=== PATIENT | female | born 1985 | race Caucasian/White ===

== ENCOUNTER 2016-11-19 19:23 | Emergency (ER) | payer OTHER ==
[~2016-11-19] VITALS: Wt 90.8 kg
[~2016-11-19 19:23] MED LIST: ALPR0.5T6 PO; CIPR500T4 PO; HYDR-3498 PO; IBUP-1542 PO; LORA-441 PO; METF500T4 PO; PHEN-538 PO
[2016-11-19 20:14] LABS: URINE BLOOD (Dip) POC Negative (NEGATIVE)
[2016-11-19] MEDS ORDERED: CIPR500T4 PO (20:27)
--- NOTE | 2016-11-19 21:18 | ERD ---
DATE OF SERVICE: HISTORY OF PRESENT ILLNESS: The patient is a 31-year-old female coming in complaining of dysuria fo r 1 day. She has had no nausea or vomiting. She has generalized pelvic pain. She has had some mil d itching within the vaginal region. No history of STDs. No new sexual partners. No vaginal disch arge. She has no dysuria, no fevers, no back pain. MEDICAL HISTORY: Diabetes, insulin, non-insulin dependent. ALLERGIES TO MEDICATIONS: Denies. HISTORY: Denies. SOCIAL HISTORY: Denies. REVIEW OF SYSTEMS: A 12-point review of systems was done. Refer to HPI for positives, all other sy stems negative. PHYSICAL EXAMINATION VITAL SIGNS: Temperature is 98.6, pulse is 94, blood pressure is 138/81, respiratory rate 20, O2 sa turation 100% on room air. Pain intensity is 6/10. GENERAL: The patient is well-appearing, well-nourished, no acute distress. HEART: Regular rate and rhythm. No murmurs, clicks, rubs or gallops. No S3 or S4. CHEST: Clear to auscultation bilaterally. There are no rales, wheezes or rhonchi. ABDOMEN: Soft, nontender and nondistended. Good bowel sounds. No rebound or guarding. No gross melecio tonitis. No gross organomegaly or masses. No Ballard sign or McBurney point tenderness. GENITOURINARY: There is no cottage cheese discharge noted within the vaginal vault, no abnormal dis charge. No CMT tenderness. No adnexal masses or tenderness throughout exam. EMERGENCY ROOM COURSE: The patient had a urine dip checked in the ER. Patient's urine showed 1+ le ukocytes with negative nitrites, negative blood, negative ketones, negative glucose, negative protei n. DIAGNOSIS: Urinary tract infection. MEDICAL DECISION MAKING: I have low suspicion for pyelonephritis. Patient does not have CVA tender ness. Low suspicion for pelvic emergency. The patient's exam is nonconcerning. I have low suspici on for fungal infection or STDs. The patient's urine was sent out for gonorrhea and chlamydia testi ng. DISCHARGE: The patient is discharged stable. Patient was given a prescription for Cipro and told t o follow up with primary care within 1 to 2 days for reevaluation. Patient was told if symptoms pro rayshawn or worsen to return to the ER. All other questions answered at time of discharge. Discharge summary given at the time of departure. Patient understood and complied with plan. Dictated By: JAZMINE BENNETT for JAN LUGO/SHYLA Conf#: [id number] DID#: [id number]
== END 2016-11-19 20:33 | disposition home or self-care (01) ==
LOC: FTE 19:23
DX: N39.0 Urinary tract infection, site not specified (principal); R10.2 Pelvic and perineal pain; E11.9 Type 2 diabetes mellitus without complications; Z79.4 Long term (current) use of insulin
CPT/HCPCS: 81003; 87591; Z7502; 99284

== ENCOUNTER 2016-11-30 10:15 | Emergency (ER) | payer OTHER ==
[~2016-11-30] VITALS: Ht 162.6 cm; Wt 90.6 kg
[2016-11-30 10:19] VITALS: Ht 162.6 cm; Wt 90.6 kg
[2016-11-30 11:47] LABS: URINE BLOOD (Dip) POC 1+ (NEGATIVE)
--- NOTE | 2016-11-30 12:25 | RADRPT ---
PROCEDURE: CT Abdomen and Pelvis without contrast CLINICAL INDICATION: Flank pain TECHNIQUE: Transaxial images were obtained through the abdomen and pelvis on a multi-slice scanner without the intravenous contrast administration. No oral contrast had previously been given. Sagit stas and coronal re-formations were subsequently reconstructed. One or more of the following dose reduction techniques were used: - Automated exposure control. - Adjustment of the mA and/or kV according to patient size. - Use of iterative reconstruction technique. Radiation dose: CTDIvol = 16.85 mGy; DLP = 1077.82 mGy-cm. COMPARISON: 03/01/2016 FINDINGS: Lung bases: The visualized lung bases appear unremarkable. Liver: The liver is mildly enlarged with no focal lesion evident. Gallbladder: The wall is not thickened. No radiopaque stones are identified. Bile ducts: The intra and extrahepatic bile ducts are normal in caliber. Pancreas: Appears normal with no mass or inflammation evident. Spleen: Normal in size with no focal lesion. Adrenals: Normal with no mass identified. Kidneys, ureters and bladder: The kidneys are normal in size and there is no mass, pathological calc ification, or hydronephrosis evident. There is no perinephric stranding. The ureters are normal in c aliber and no ureteroliths are identified. The bladder appears unremarkable. Reproductive organs: An IUD is seen within the uterus. No adnexal mass is identified. Stomach and bowel: The bowel appears unremarkable with no evidence of bowel obstruction or inflammat ion. The stomach appears unremarkable. Appendix: A normal vermiform appendix is again evident. Peritoneum: No free intraperitoneal fluid or air is identified. There is a small fat containing umbi lical hernia. Aorta: Normal in caliber with no aneurysmal dilatation. IVC: Unremarkable. Lymph nodes: No pathologically enlarged nodes are identified. Osseous structures: The osseous elements appear intact. IMPRESSION: 1. There is again no evidence of urinary outflow obstruction or ureterolithiasis. The bladder agai n appears normal. 2. No evidence of bowel obstruction or inflammation with a normal-appearing vermiform appendix. 3. Mild persistent hepatomegaly with no focal lesion. 4. An IUD is again seen within the uterus. 5. Small fat containing umbilical hernia again noted. Cynthia Vasquez Physician Date Time Electronically viewed and signed by Cynthia Vasquez Physician on 11/30/2016 12:24 RH/
[2016-11-30] MEDS ORDERED: CEFTRIAXONE 1 GM INJ IM ONE (12:30)
[2016-11-30] MEDS ORDERED: BACTDS PO (12:55)
[2016-11-30] MEDS ORDERED: IBUP800T25 PO (12:55)
[2016-11-30] MEDS ORDERED: TRAM50TA2 PO (12:55)
--- NOTE | 2016-11-30 12:57 | ERD ---
ER Documentation Chief Complaint Date/Time DATE: 11/30/16 TIME: 12:55 Chief Complaint left flank pain for 5 days. no n/v. mild dysuria noted. no hematuria HPI This 31-year-old female complains of left lower back or flank pain for last 5 days. She was diagnosed with UTI by her primary doctor and was taking Cipro but she complains of persistent flank pain. She is some mild dysuria. She denies fevers, vomiting. ROS All systems reviewed and are negative except as per history of present illness. Medications Home Meds Active Scripts Tramadol HCl (Tramadol HCl) 50 Mg Tablet, 50 MG PO Q4 Y for PAIN, #15 TAB Prov:GUI JULIO MD 11/30/16 Ibuprofen* (Motrin*) 800 Mg Tab, 800 MG PO Q6, #20 TAB Prov:GUI JULIO MD 11/30/16 Sulfamethoxazole-Trimethoprim* (Bactrim* DS) 800-160 Mg Tab, 1 TAB PO BID for 10 Days, TAB Prov:GUI JULIO MD 11/30/16 Ciprofloxacin Hcl* (Ciprofloxacin Hcl*) 500 Mg Tablet, 500 MG PO BID for 7 Days , TAB Prov:GABE CRUZ PA-C 11/19/16 Hydrocodone Bit-Acetaminophen* ([place]*) 5-325 Mg Tab, 1 TAB PO Q6 Y for PAIN, # 10 TAB Prov:LUÍS PINA NP 03/01/16 Phenazopyridine Hcl* (Pyridium*) 200 Mg Tab, 200 MG PO TID Y for URINARY PAIN, # 6 TAB Prov:LUÍS PINA NP 03/01/16 Ciprofloxacin Hcl* (Ciprofloxacin Hcl*) 500 Mg Tablet, 500 MG PO BID for 10 Days , TAB Prov:LUÍS PINA NP 03/01/16 Ibuprofen* (Motrin*) 600 Mg Tab, 600 MG PO Q6, #30 TAB Prov:DAHIANA DRUMMOND 10/22/15 Lorazepam* (Ativan*) 0.5 Mg Tablet, 0.5 MG PO Q8, #10 TAB Prov:DAHIANA DRUMMOND 10/22/15 Reported Medications Alprazolam* (Alprazolam*) 0.5 Mg Tablet, 0.5 MG PO DAILY Y for ANXIETY, TAB 09/17/14 Metformin* (Glucophage*) 500 Mg Tab, 500 MG PO CHECK SUGAR DAILY for CHECK SUGAR TAKE IF NEEDED, TAB 08/10/14 Allergies Allergies: Coded Allergies: No Known Allergy (Unverified , 03/01/16) PMhx/Soc History of Surgery: No Anesthesia Reaction: No Hx Neurological Disorder: No Hx Respiratory Disorders: No Hx Cardiac Disorders: No Hx Psychiatric Problems: No Hx Miscellaneous Medical Probl: Yes (DM) Hx Alcohol Use: No Hx Substance Use: No Hx Tobacco Use: No Physical Exam Vitals Vital Signs Date Time Temp Pulse Resp B/P Pulse Ox O2 Delivery O2 Flow Rate FiO2 11/30/16 10:19 98.2 69 20 145/75 99 Physical Exam Const: [] Alert, [id number]. Morbidly obese. Head: Atraumatic Eyes: Normal Conjunctiva ENT: Normal External Ears, Nose and Mouth. Neck: Full range of motion..~ No meningismus. Resp: Clear to auscultation bilaterally Cardio: Regular rate and rhythm, no murmurs Abd: Soft, non tender, non distended. Normal bowel sounds Skin: No petechiae or rashes Back: No midline mild left flank tenderness and left lower back tenderness. No midline tenderness or deformities. Ext: No cyanosis, or edema Neur: Awake and alert Psych: Normal Mood and Affect Results 24 hrs Laboratory Tests Test 11/30/16 11:50 Bedside Urine Blood 1+ Bedside Urine Glucose (UA) Negative Bedside Urine Ketones (LAB) Negative Bedside Urine Leukocyte Esterase (L 2+ Bedside Urine Nitrite (LAB) Negative Bedside Urine Protein (LAB) Negative Bedside Urine pH (LAB) 6.0 Current Medications Medications (Trade) Dose Ordered Sig/Mick Route PRN Reason Start Time Stop Time Status Last Admin Dose Admin Ceftriaxone Sodium (Rocephin) 1 gm ONCE ONCE IM 11/30/16 12:30 11/30/16 12:31 DC Procedures/MDM Urine shows 1+ leukocytes and hemoglobin and was sent for culture. HCG is negative. Given previous treatment and uncertain cause of flank and CT abdomen pelvis was obtained shows no evidence of pyelonephritis, and is read as having no acute findings according to the radiologist. Given the signs of UTI and flank pain of uncertain etiology Rocephin was given 1 g IM. Patient presents with signs of cystitis and low back pain or flank pain of uncertain etiology. She has no fever vomiting suggestive of pyelonephritis currently but will be treated with Bactrim, ibuprofen and tramadol. Her back pain may be muscular skeletal. She should return for fevers, vomiting, new or worsening symptoms otherwise to include fluids, and follow-up with primary care doctor this week. The patient was stable with no new complaints during the ER course. Clinically, there is no current evidence to suggest meningitis, sepsis, acute abdomen, pneumonia, acute coronary syndrome, pulmonary embolism, or any other emergent condition appearing to require further evaluation or hospitalization. The patient should certainly return for any new or worsening symptoms per the aftercare instructions. They should otherwise follow-up with her primary care doctor for reevaluation this week. Patient signs or symptoms not consistent with PID, tubo-ovarian abscess, additional causes of flank pain or dysuria, but should return to follow-up with primary care doctor as directed. Departure Diagnosis: Primary Impression: UTI (urinary tract infection) Urinary tract infection type: acute cystitis Hematuria presence: without hematuria Qualified Code: N30.00 - Acute cystitis without hematuria Additional Impression: Flank pain Condition: Stable Patient Instructions: Understanding Urinary Tract Infections (UTIs), Flank Pain , Uncertain Cause Additional Instructions: HAY INFECCION EN ORINA, RUSS CT NORMAL. POSIBLEMENTE MUSCULOS . Cheque otro vez con cox doctor primario en el proximo toussaint or regresa para mas o nueva simptomas- JAYSON SANDOVAL. GUI JULIO MD Nov 30, 2016 12:57
== END 2016-11-30 13:32 | disposition home or self-care (01) ==
LOC: FTE 10:15
DX: N30.00 Acute cystitis without hematuria (principal); E11.9 Type 2 diabetes mellitus without complications; Z79.84 Long term (current) use of oral hypoglycemic drugs
CPT/HCPCS: 74176; 81003; 87086; 96372; J0696; Z7502

== ENCOUNTER 2016-12-07 21:49 | Emergency (ER) | payer OTHER ==
[~2016-12-07] VITALS: Ht 154.9 cm; Wt 91.5 kg
[~2016-12-07 21:49] MED LIST changes: +BACTDS PO; +IBUP800T25 PO; +TRAM50TA2 PO
[2016-12-07 22:01] VITALS: Ht 154.9 cm; Wt 91.5 kg
[2016-12-07 23:18] LABS: URINE BLOOD (Dip) POC Trace-lysed (NEGATIVE)
[2016-12-08] MEDS ORDERED: CIPR500T4 PO (00:19)
[2016-12-08] MEDS ORDERED: PHEN-537 PO (00:19)
[2016-12-08] MEDS ORDERED: CEPH-443 PO (00:23)
--- NOTE | 2016-12-08 00:43 | ERD ---
ER Documentation Chief Complaint Date/Time DATE: 12/08/16 TIME: 00:40 Chief Complaint Pain on urination HPI Patient is a 31-year-old female who presents to the ED with dysuria, urgency and back pain on and off for 1 week. She states that she took Bactrim and is currently on Bactrim but still states that she has dysuria. Denies fever or chills. Denies abdominal pain, nausea, vomiting or diarrhea. Denies constipation. Denies chest pain, cough, shortness of breath or difficulty breathing. Denies headache, dizziness, neck pain or stiffness. Denies leg pain or swelling. No other complaints. ROS All systems reviewed and are negative except as per history of present illness. Medications Home Meds Active Scripts Cephalexin* (Keflex*) 500 Mg Capsule, 500 MG PO QID for 5 Days, CAP Prov:SARAVANAN ONEIL PA-C 12/08/16 Phenazopyridine Hcl* (Pyridium*) 100 Mg Tab, 100 MG PO TID Y for URINARY PAIN, # 15 TAB Prov:SARAVANAN ONEIL PA-C 12/08/16 Tramadol HCl (Tramadol HCl) 50 Mg Tablet, 50 MG PO Q4 Y for PAIN, #15 TAB Prov:GUI JULIO MD 11/30/16 Ibuprofen* (Motrin*) 800 Mg Tab, 800 MG PO Q6, #20 TAB Prov:GUI JULIO MD 11/30/16 Sulfamethoxazole-Trimethoprim* (Bactrim* DS) 800-160 Mg Tab, 1 TAB PO BID for 10 Days, TAB Prov:GUI JULIO MD 11/30/16 Ciprofloxacin Hcl* (Ciprofloxacin Hcl*) 500 Mg Tablet, 500 MG PO BID for 7 Days , TAB Prov:GABE CRUZ PA-C 11/19/16 Hydrocodone Bit-Acetaminophen* ([place]*) 5-325 Mg Tab, 1 TAB PO Q6 Y for PAIN, # 10 TAB Prov:LUÍS PINA NP 03/01/16 Phenazopyridine Hcl* (Pyridium*) 200 Mg Tab, 200 MG PO TID Y for URINARY PAIN, # 6 TAB Prov:LUÍS PINA NP 03/01/16 Ciprofloxacin Hcl* (Ciprofloxacin Hcl*) 500 Mg Tablet, 500 MG PO BID for 10 Days , TAB Prov:LUÍS PINA TERRESTRIAL ECOLOGIST 03/01/16 Ibuprofen* (Motrin*) 600 Mg Tab, 600 MG PO Q6, #30 TAB Prov:DAHIANA DRUMMOND C 10/22/15 Lorazepam* (Ativan*) 0.5 Mg Tablet, 0.5 MG PO Q8, #10 TAB Prov:DAHIANA DRUMMOND C 10/22/15 Reported Medications Alprazolam* (Alprazolam*) 0.5 Mg Tablet, 0.5 MG PO DAILY Y for ANXIETY, TAB 09/17/14 Metformin* (Glucophage*) 500 Mg Tab, 500 MG PO CHECK SUGAR DAILY for CHECK SUGAR TAKE IF NEEDED, TAB 08/10/14 Allergies Allergies: Coded Allergies: No Known Allergy (Unverified , 03/01/16) PMhx/Soc Medical and Surgical Hx: pt denies Surgical Hx History of Surgery: No Anesthesia Reaction: No Hx Neurological Disorder: No Hx Respiratory Disorders: No Hx Cardiac Disorders: No Hx Psychiatric Problems: No Hx Miscellaneous Medical Probl: Yes (DM) Hx Alcohol Use: No Hx Substance Use: No Hx Tobacco Use: No Smoking Status: Never smoker FmHx Family History: No coronary disease, No diabetes, No other Physical Exam Vitals Vital Signs Date Time Temp Pulse Resp B/P Pulse Ox O2 Delivery O2 Flow Rate FiO2 12/07/16 22:01 97.5 95 18 140/79 98 Physical Exam GENERAL: Well-developed, well-nourished female. Appears in no acute distress. LUNG: Clear to auscultation bilaterally. No rhonchi, wheezing, rales or coarse breath sounds. HEART: Regular rate and rhythm. No murmurs, rubs or gallops. ABDOMEN: No scars, ecchymosis or rashes noted. Soft, nontender, and nondistended. Positive bowel sounds in all four quadrants. No rebound tenderness , no guarding. (-) McBurneys point tenderness. No CVA tenderness. BACK: No midline tenderness. SKIN: Normal color. Warm and dry. No rashes or lesions. Capillary refill < 2 seconds Results 24 hrs Laboratory Tests Test 12/07/16 23:21 Bedside Urine Blood Trace-lysed Bedside Urine Glucose (UA) 0.50% Bedside Urine Ketones (LAB) Negative Bedside Urine Leukocyte Esterase (L Negative Bedside Urine Nitrite (LAB) Negative Bedside Urine Protein (LAB) Negative Bedside Urine pH (LAB) 6.5 Procedures/MDM ER COURSE: I kept the patient and/or family informed of laboratory and diagnostic imaging results throughout the emergency room course. MEDICAL DECISION MAKING: This is a 31-year-old female who presents with dysuria 1 week. Vital signs were reviewed. Patient is afebrile. Patient is not hypoxic. Patient is not toxic or ill-appearing. Her urine was negative for nitrates, leukocytes or hematochezia. was negative. Culture from last week showed gram- positive. I will be switching her antibiotics to Keflex and giving her Pyridium. Urine was also sent for culture low suspicion for ovarian torsion, PID, tuboovarian abscess, ectopic , bowel obstruction, pyelonephritis, UTI, appendicitis, cervicitis, septic , molar , HELLP syndrome , preeclampsia, eclampsia, placenta previa, placenta abruptia. Low suspicion for nephrolithiasis, obstructive stone, septic stone. DISCHARGE: At this time, patient is stable for discharge and outpatient management with no new complaints during the ER course. Patient was sent home with Keflex and Pyridium. Patient will be discharged home with instructions to recheck for new or worsening symptoms such as fever, nausea, weakness, LOC and to follow up with primary care in the next 1-2 days. Patient was advised to return to the ER for any new or worsening symptoms. Plan was discussed and patient and/or family understands and agrees. Home instructions were given. Departure Diagnosis: Primary Impression: Dysuria Condition: Stable Patient Instructions: Dysuria Additional Instructions: Call your primary care doctor TOMORROW for an appointment during the next 1-2 days.See the doctor sooner or return here if your condition worsens before your appointment time. SARAVANAN ONEIL PA-C Dec 08, 2016 00:42
== END 2016-12-08 00:46 | disposition home or self-care (01) ==
LOC: FTE 21:49
DX: R30.0 Dysuria (principal); E11.9 Type 2 diabetes mellitus without complications; Z79.84 Long term (current) use of oral hypoglycemic drugs
CPT/HCPCS: 81003; Z7502; 99283

== ENCOUNTER 2017-04-29 12:01 | Emergency (ER) | payer OTHER ==
[~2017-04-29] VITALS: Wt 81.0 kg
[~2017-04-29 12:01] MED LIST changes: +CEPH-443 PO; +PHEN-537 PO
--- NOTE | 2017-04-29 13:42 | RADRPT ---
PROCEDURE: XR Left Ankle. CLINICAL INDICATION: Left ankle pain. Postop. TECHNIQUE: 3 views. Frontal, lateral, and oblique. COMPARISON: None. FINDINGS: There is a lateral plate and multiple screws transfixing the comminuted fracture of the distal shaft of the fibula. There is also an interosseous fixation device. Alignment is satisfactory. The soft tissues are normal. Articular surfaces are intact. There is a plantar calcaneal spur. There is no lytic or blastic lesion. IMPRESSION: 1. Satisfactory postoperative appearance of the left ankle. RPTAT: QQ .John Little MD, Date Time Electronically viewed and signed by .John Little MD, on 04/29/2017 13:42 .R/
[2017-04-29 14:01] LABS: URINE BLOOD (Dip) POC Trace-intact (NEGATIVE)
[2017-04-29] MEDS ORDERED: IBUP-1542 PO (14:09)
[2017-04-29] MEDS ORDERED: NITR-58 PO (14:11)
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
[2017-04-30 16:09] LABS: URINE BLOOD (Dip) POC Trace-intact (NEGATIVE)
== END 2017-04-29 14:20 | disposition home or self-care (01) ==
LOC: FTE 12:01
DX: N39.0 Urinary tract infection, site not specified (principal); Z79.84 Long term (current) use of oral hypoglycemic drugs
CPT/HCPCS: 73610; 81003; Z7502

== ENCOUNTER 2019-01-15 03:53 | Emergency (ER) | payer OTHER ==
[~2019-01-15] VITALS: Ht 162.6 cm; Wt 94.3 kg
[~2019-01-15 03:53] MED LIST changes: -IBUP800T25 PO; +IBUP800T48 PO; +METF-849 PO; -METF500T4 PO; +NITR-58 PO
[2019-01-15 04:00] VITALS: BP 148/85; PULSE 86; RESP 17; Ht 162.6 cm; Wt 94.3 kg
[2019-01-15] MEDS ORDERED: ACETAMINOPHEN 325 MG TAB PO STA (05:08)
--- NOTE | 2019-01-15 05:46 | ERD ---
ER Documentation Chief Complaint Chief Complaint VAGINAL BLEEDING X14 DAYS, 8 WEEKS , FLANK PAIN HPI 33-year-old female presents with complaint of vaginal bleeding and bilateral flank pain for the past 14 days. States that she has not been going through any pads but she does see some spotting on toilet paper. Not taking any treatments. Denies lower right quadrant tenderness. She is ambulatory. In addition she states there is been some vomiting. States that she vomited 2 times today. Denies dysuria hematuria, fevers, nausea, chills. ROS All systems reviewed and are negative except as per history of present illness. Medications Home Meds Active Scripts Cephalexin* (Keflex*) 500 Mg Capsule, 500 MG PO QID for 7 Days, CAP Prov:GABE CRUZ PA-C 01/15/19 Acetaminophen* (Tylophen*) 500 Mg Capsule, 2 CAP PO Q8H PRN for PAIN AND OR ELEVATED TEMP, #20 CAP Prov:CARLY BARAJAS 01/15/19 Nitrofurantoin Monohyd Macrocr* (Macrobid*) 100 Mg Capsr, 100 MG PO BID for 5 Days, CAP Prov:DONALD LOJA PA-C 04/29/17 Ibuprofen* (Motrin*) 600 Mg Tab, 600 MG PO Q6H PRN for PAIN AND OR ELEVATED TEMP, #30 TAB Prov:DONALD LOJA PA-C 04/29/17 Cephalexin* (Keflex*) 500 Mg Capsule, 500 MG PO QID for 5 Days, CAP Prov:SARAVANAN ONEIL PA-C 12/08/16 Phenazopyridine Hcl* (Pyridium*) 100 Mg Tab, 100 MG PO TID PRN for URINARY PAIN, #15 TAB Prov:SARAVANAN ONEIL PA-C 12/08/16 Tramadol HCl (Tramadol HCl) 50 Mg Tablet, 50 MG PO Q4 PRN for PAIN, #15 TAB Prov:GUI JULIO MD 11/30/16 Ibuprofen* (Motrin*) 800 Mg Tab, 800 MG PO Q6, #20 TAB Prov:GUI JULIO MD 11/30/16 Sulfamethoxazole-Trimethoprim* (Bactrim* DS) 800-160 Mg Tab, 1 TAB PO BID for 10 Days, TAB Prov:GUI JULIO MD 11/30/16 Ciprofloxacin Hcl* (Ciprofloxacin Hcl*) 500 Mg Tablet, 500 MG PO BID for 7 Days, TAB Prov:GABE CRUZ PA-C 11/19/16 Hydrocodone Bit-Acetaminophen* ([place]*) 5-325 Mg Tab, 1 TAB PO Q6 PRN for PAIN, #10 TAB Prov:LUÍS PINA RAW SHELLFISH PREPARER 03/01/16 Phenazopyridine Hcl* (Pyridium*) 200 Mg Tab, 200 MG PO TID PRN for URINARY PAIN, #6 TAB Prov:LUÍS PINA RAW SHELLFISH PREPARER 03/01/16 Ciprofloxacin Hcl* (Ciprofloxacin Hcl*) 500 Mg Tablet, 500 MG PO BID for 10 Days, TAB Prov:LUÍS PINA RAW SHELLFISH PREPARER 03/01/16 Ibuprofen* (Motrin*) 600 Mg Tab, 600 MG PO Q6, #30 TAB Prov:DAHIANA DRUMMOND 10/22/15 Lorazepam* (Ativan*) 0.5 Mg Tablet, 0.5 MG PO Q8, #10 TAB Prov:DAHIANA DRUMMOND 10/22/15 Reported Medications Alprazolam* (Alprazolam*) 0.5 Mg Tablet, 0.5 MG PO DAILY PRN for ANXIETY, TAB 09/17/14 Metformin* (Glucophage*) 500 Mg Tab, 500 MG PO CHECK SUGAR DAILY for CHECK SUGAR TAKE IF NEEDED, TAB 08/10/14 Allergies Allergies: Coded Allergies: No Known Allergy (Unverified , 03/01/16) PMhx/Soc Medical and Surgical Hx: pt denies Medical Hx, pt denies Surgical Hx History of Surgery: No Anesthesia Reaction: No Hx Neurological Disorder: No Hx Respiratory Disorders: No Hx Cardiac Disorders: No Hx Psychiatric Problems: No Hx Miscellaneous Medical Probl: No Hx Alcohol Use: No Hx Substance Use: No Hx Tobacco Use: No Smoking Status: Never smoker FmHx Family History: No diabetes, No coronary disease, No other Physical Exam Vitals Physical Exam Const: No acute distress Head: Atraumatic Eyes: Normal Conjunctiva ENT: Normal External Ears, Nose and Mouth. Neck: Full range of motion. No meningismus. Resp: Clear to auscultation bilaterally Cardio: Regular rate and rhythm, no murmurs Abd: Soft, non tender, non distended. Normal bowel sounds Skin: No petechiae or rashes Back: Left-sided CVA tenderness. Ext: No cyanosis, or edema Neur: Awake and alert Psych: Normal Mood and Affect Result Diagram: 01/15/1952001/15/19520 Results 24 hrs Laboratory Tests Test 01/15/19 05:21 White Blood Count 13.5 10^3/ul Red Blood Count 4.87 10^6/ul Hemoglobin 13.0 g/dl Hematocrit 40.9 % Mean Corpuscular Volume 84.0 fl Mean Corpuscular Hemoglobin 26.7 pg Mean Corpuscular Hemoglobin Concent 31.8 g/dl Red Cell Distribution Width 13.2 % Platelet Count 352 10^3/UL Mean Platelet Volume 10.5 fl Immature Granulocytes % 0.600 % Neutrophils % 65.5 % Lymphocytes % 26.2 % Monocytes % 5.3 % Eosinophils % 1.9 % Basophils % 0.5 % Nucleated Red Blood Cells % 0.0 /100WBC Immature Granulocytes # 0.080 10^3/ul Neutrophils # 8.8 10^3/ul Lymphocytes # 3.5 10^3/ul Monocytes # 0.7 10^3/ul Eosinophils # 0.3 10^3/ul Basophils # 0.1 10^3/ul Nucleated Red Blood Cells # 0.0 10^3/ul Urine Color YELLOW Urine Clarity SLIGHTLY CLOUDY Urine pH 6.0 Urine Specific [place] 1.025 Urine Ketones NEGATIVE mg/dL Urine Nitrite NEGATIVE mg/dL Urine Bilirubin NEGATIVE mg/dL Urine Urobilinogen NEGATIVE mg/dL Urine Leukocyte Esterase TRACE Tere/ul Urine Microscopic RBC 1 /HPF Urine Microscopic WBC 3 /HPF Urine Squamous Epithelial Cells FEW /HPF Urine Hemoglobin 3+ mg/dL Urine Glucose 3+ mg/dL Urine Total Protein NEGATIVE mg/dl Sodium Level 138 mmol/L Potassium Level 4.2 mmol/L Chloride Level 104 mmol/L Carbon Dioxide Level 24 mmol/L Anion Gap 10 Blood Urea Nitrogen 12 mg/dl Creatinine 0.51 mg/dl Est Glomerular Filtrat Rate mL/min > 60 mL/min Glucose Level 301 mg/dl Calcium Level 9.5 mg/dl Total Bilirubin 0.2 mg/dl Direct Bilirubin 0.00 mg/dl Indirect Bilirubin 0.2 mg/dl Aspartate Amino Transf (AST/SGOT) 16 IU/L Alanine Aminotransferase (ALT/SGPT) 14 IU/L Alkaline Phosphatase 115 IU/L Total Protein 8.1 g/dl Albumin 4.3 g/dl Globulin 3.80 g/dl Albumin/Globulin Ratio 1.13 Lipase 122 U/L Beta HCG, Quantitative 29270.0 mIU/ml Current Medications Medications Dose Sig/Mick Start Time Status Last (Trade) Ordered Route PRN Stop Time Admin Dose Reason Admin 650 mg ONCE STAT 01/15/19 DC 01/15/19 Acetaminophen PO 05:08 05:21 (Tylenol 01/15/19 05:11 Tab) Procedures/MDM DIAGNOSTIC IMAGING REPORT Patient: SREEDHAR LAGOS : 1985 Age: 33 Sex: F MR #: [id number] DOS: 01/15/19 0508 Ordering MD: CARLY BARAJAS Location: [facility] Room/Bed: PROCEDURE: US OB < 14 weeks. CLINICAL INDICATION: Vaginal bleeding TECHNIQUE: Multiple sonographic images of the pelvis were obtained utilizing transabdominal technique. The images were reviewed on a PACS workstation. COMPARISON: None FINDINGS: There is a single intrauterine gestation, crown-rump length 2.1 cm and heart rate 179 beats per minute. No uterine lesions identified. The ovaries are not seen, likely obscured by shadowing bowel gas. No adnexal lesions demonstrated. No evidence of pelvic free fluid. IMPRESSION: 1. Single live intrauterine gestation of approximately 8 weeks 1 day. Estimated date of delivery 08/26/2019. 2. Ovaries not seen. RPTAT: [facility] Physician Shannon Date Time Electronically viewed and signed by Physician Shannon on 01/15/2019 06:15 xB/ CC: CARLY BARAJAS [id number] ER Course: CBC, UA, beta quant HCG, type and RH, vaginal US/abdominal US ordered. All WNL. MDM: CBC, UA, beta quant HCG, type and RH, vaginal US/abdominal US ordered. Glucose was elevated but patient asymptomatic. Advised patient to follow up with her primary regarding this. All other results within limits. Patient placed on keflex due to possibility of UTI in UA. I have low suspicion for ectopic based on results of US, hemodynamic stability, physical exam and patient history. I have low suspicion for septic , pyelonephritis, placenta abrupta, appendicitis, cholecystitis, bowel obstruction, ovarian torsion, symptomatic anema, PID, surgical abdomen, or other life threatening conditions based on patient history, physical exam, and lab/imaging results. Patient discharged with strict ER precautions. Patient advised to follow up with PMD and grinding operator. All questions answered at discharge. Departure Diagnosis: Primary Impression: Vaginal bleeding in patient at less than 20 weeks gestation Additional Impression: UTI (urinary tract infection) Urinary tract infection type: site unspecified Hematuria presence: without hematuria Qualified Codes: N39.0 - Urinary tract infection, site not specified Condition: Stable CHERYANUJ HOFFMANEL Jan 15, 2019 05:46
[2019-01-15] MEDS ORDERED: ACET500C5 PO (06:10)
[2019-01-15] MEDS ORDERED: CEPH-443 PO (06:41)
== END 2019-01-15 06:42 | disposition home or self-care (01) ==
LOC: FTE 03:53
DX: O20.9 Hemorrhage in early pregnancy, unspecified (principal); O23.41 Unspecified infection of urinary tract in pregnancy, first trimester; Z3A.08 8 weeks gestation of pregnancy; Z79.84 Long term (current) use of oral hypoglycemic drugs
CPT/HCPCS: 76801; 80053; 81001; 83690; 84702; 85025; 86900; 86901; 87086; Z7610; 36415

== ENCOUNTER 2019-04-03 09:12 | Emergency (ER) | payer OTHER ==
[~2019-04-03] VITALS: Ht 167.6 cm; Wt 91.4 kg
[~2019-04-03 09:12] MED LIST changes: +ACET500C5 PO
[2019-04-03 09:25] VITALS: BP 112/71; PULSE 78; RESP 18; Ht 167.6 cm; Wt 91.4 kg
[2019-04-03] MEDS ORDERED: ACETAMINOPHEN 325 MG TAB PO STA (10:16)
--- NOTE | 2019-04-03 11:28 | ERD ---
ER Documentation Chief Complaint Chief Complaint Pt with VB and pelvic pain since morning. Due date 08/22. HPI Patient is a 34 years old female currently at 21 weeks gestation presenting to the clinic for vaginal bleeding at 6:40 AM. She reports an initial gush of blood today morning which was then followed by blood on wipes. Admits to abdominal pain and reports last menstrual period at 11/15/2018. Patient denies fever, chills, emesis, hematochezia, melena, urinary symptoms, and vaginal discharge. Patient admits to mild nausea and abdominal cramps. ROS All systems reviewed and are negative except as per history of present illness. Medications Home Meds Active Scripts Acetaminophen* (Tylophen*) 500 Mg Capsule, 1 CAP PO Q6H PRN for PAIN AND OR ELEVATED TEMP, #20 CAP Prov:ABRAM YOUNGER PA-C 04/03/19 Nitrofurantoin Monohyd Macrocr* (Macrobid*) 100 Mg Capsr, 100 MG PO BID for 7 Days, #14 CAP Prov:ABRAM YOUNGER PA-C 04/03/19 Cephalexin* (Keflex*) 500 Mg Capsule, 500 MG PO QID for 7 Days, CAP Prov:GABE CRUZ PA-C 01/15/19 Acetaminophen* (Tylophen*) 500 Mg Capsule, 2 CAP PO Q8H PRN for PAIN AND OR ELEVATED TEMP, #20 CAP Prov:CARLY BARAJAS 01/15/19 Nitrofurantoin Monohyd Macrocr* (Macrobid*) 100 Mg Capsr, 100 MG PO BID for 5 Days, CAP Prov:DONALD LOJA PA-C 04/29/17 Ibuprofen* (Motrin*) 600 Mg Tab, 600 MG PO Q6H PRN for PAIN AND OR ELEVATED TEMP, #30 TAB Prov:DONALD LOJA PA-C 04/29/17 Cephalexin* (Keflex*) 500 Mg Capsule, 500 MG PO QID for 5 Days, CAP Prov:SARAVANAN ONEIL PA-C 12/08/16 Phenazopyridine Hcl* (Pyridium*) 100 Mg Tab, 100 MG PO TID PRN for URINARY PAIN, #15 TAB Prov:SARAVANAN ONEIL PA-C 12/08/16 Tramadol HCl (Tramadol HCl) 50 Mg Tablet, 50 MG PO Q4 PRN for PAIN, #15 TAB Prov:GUI JULIO MD 11/30/16 Ibuprofen* (Motrin*) 800 Mg Tab, 800 MG PO Q6, #20 TAB Prov:GUI JULIO MD 11/30/16 Sulfamethoxazole-Trimethoprim* (Bactrim* DS) 800-160 Mg Tab, 1 TAB PO BID for 10 Days, TAB Prov:GUI JULIO MD 11/30/16 Ciprofloxacin Hcl* (Ciprofloxacin Hcl*) 500 Mg Tablet, 500 MG PO BID for 7 Days, TAB Prov:GABE CRUZ PA-C 11/19/16 Hydrocodone Bit-Acetaminophen* ([place]*) 5-325 Mg Tab, 1 TAB PO Q6 PRN for PAIN, #10 TAB Prov:LUÍS PINA NP 03/01/16 Phenazopyridine Hcl* (Pyridium*) 200 Mg Tab, 200 MG PO TID PRN for URINARY PAIN, #6 TAB Prov:LUÍS PINA NP 03/01/16 Ciprofloxacin Hcl* (Ciprofloxacin Hcl*) 500 Mg Tablet, 500 MG PO BID for 10 Days, TAB Prov:LUÍS PINA DIRECT CARE PROVIDER 03/01/16 Ibuprofen* (Motrin*) 600 Mg Tab, 600 MG PO Q6, #30 TAB Prov:DAHIANA DRUMMOND 10/22/15 Lorazepam* (Ativan*) 0.5 Mg Tablet, 0.5 MG PO Q8, #10 TAB Prov:DAHIANA DRUMMOND 10/22/15 Reported Medications Alprazolam* (Alprazolam*) 0.5 Mg Tablet, 0.5 MG PO DAILY PRN for ANXIETY, TAB 09/17/14 Metformin* (Glucophage*) 500 Mg Tab, 500 MG PO CHECK SUGAR DAILY for CHECK SUGAR TAKE IF NEEDED, TAB 08/10/14 Allergies Allergies: Coded Allergies: No Known Allergy (Unverified , 03/01/16) PMhx/Soc Medical and Surgical Hx: pt denies Medical Hx, pt denies Surgical Hx History of Surgery: No Anesthesia Reaction: No Hx Neurological Disorder: No Hx Respiratory Disorders: No Hx Cardiac Disorders: No Hx Psychiatric Problems: No Hx Miscellaneous Medical Probl: No Hx Alcohol Use: No Hx Substance Use: No Hx Tobacco Use: No Smoking Status: Never smoker FmHx Family History: No diabetes, No coronary disease, No other Physical Exam Vitals Vital Signs Date Temp Pulse Resp B/P (MAP) Pulse Ox O2 O2 Flow FiO2 Time Delivery Rate 04/03/19 97.5 78 18 112/71 98 09:25 (85) Physical Exam Const: No acute distress Head: Atraumatic Eyes: Normal Conjunctiva Resp: Clear to auscultation bilaterally Cardio: Regular rate and rhythm, no murmurs Abd: Soft, non tender, non distended. Normal bowel sounds Skin: No petechiae or rashes Back: No midline or flank tenderness. Negative CVAT. Ext: No cyanosis, or edema Neur: Awake and alert Psych: Normal Mood and Affect Result Diagram: 04/03/19 1027 Results 24 hrs Laboratory Tests Test 04/03/19 10:27 04/03/19 10:28 White Blood Count 14.4 10^3/ul Red Blood Count 4.47 10^6/ul Hemoglobin 12.0 g/dl Hematocrit 36.3 % Mean Corpuscular Volume 81.2 fl Mean Corpuscular Hemoglobin 26.8 pg Mean Corpuscular Hemoglobin Concent 33.1 g/dl Red Cell Distribution Width 13.3 % Platelet Count 308 10^3/UL Mean Platelet Volume 9.6 fl Immature Granulocytes % 0.800 % Neutrophils % 76.5 % Lymphocytes % 16.3 % Monocytes % 4.0 % Eosinophils % 2.1 % Basophils % 0.3 % Nucleated Red Blood Cells % 0.0 /100WBC Immature Granulocytes # 0.110 10^3/ul Neutrophils # 11.0 10^3/ul Lymphocytes # 2.4 10^3/ul Monocytes # 0.6 10^3/ul Eosinophils # 0.3 10^3/ul Basophils # 0.1 10^3/ul Nucleated Red Blood Cells # 0.0 10^3/ul Beta HCG, Quantitative 87662.0 mIU/ml Urine Color YELLOW Urine Clarity CLOUDY Urine pH 7.0 Urine Specific [place] 1.010 Urine Ketones NEGATIVE mg/dL Urine Nitrite NEGATIVE mg/dL Urine Bilirubin NEGATIVE mg/dL Urine Urobilinogen NEGATIVE mg/dL Urine Leukocyte Esterase 3+ Tere/ul Urine Microscopic RBC 4 /HPF Urine Microscopic WBC 32 /HPF Urine Squamous Epithelial Cells FEW /HPF Urine Bacteria FEW /HPF Urine Hemoglobin 3+ mg/dL Urine Glucose NEGATIVE mg/dL Urine Total Protein NEGATIVE mg/dl Current Medications Medications Dose Sig/Mick Start Time Status Last (Trade) Ordered Route PRN Stop Time Admin Dose Reason Admin 650 mg ONCE STAT 04/03/19 DC 04/03/19 Acetaminophen PO 10:16 04/03/19 10:23 (Tylenol 10:18 Tab) Procedures/MDM Patient was seen and evaluated for vaginal bleeding. CBC and urinalysis revealed leukocytosis, urine bacteremia, leukocyte esterase. Patient is O- Positive. Beta hCG is appropriate for gestational age. pelvic ultrasound revealed Single live intrauterine gestation of 19 weeks 5 days by ultrasound criteria. Patient was given Tylenol in ED. Low suspicion of sepsis. Leukocytosis most likely from UTI and stress. Patient is stable and ready for discharge. Follow-up with PCP and STAGE TECHNICIAN. Patient will be discharged with Macrobid for UTI treatment. Departure Diagnosis: Primary Impression: Vaginal bleeding Additional Impression: UTI (urinary tract infection) Urinary tract infection type: site unspecified Hematuria presence: without hematuria Qualified Codes: N39.0 - Urinary tract infection, site not specified Patient Instructions: VBPG, Understanding Urinary Tract Infections (UTIs) Referrals: [facility] Additional Instructions: Paciente aconseja volver a Departamento de urgencias inmediatamente para sntomas nuevos o que empeoran . Paciente aconseja posteriores con el PCP en 2-3 vaughan . Paciente verbaliza la comprehensin y est de acuerdo con el tratamiento y el curso de accin. Si el paciente no tiene ninguna de atencin primaria pueden seguir con [facility] [address] [place] [address] o [facility] + [address] [address] ABRAM YOUNGER PA-C Apr 03, 2019 11:28
[2019-04-03] MEDS ORDERED: ACET500C5 PO (11:37)
[2019-04-03] MEDS ORDERED: NITR-58 PO (11:37)
== END 2019-04-03 12:35 | disposition home or self-care (01) ==
LOC: FTE 09:12
DX: O20.9 Hemorrhage in early pregnancy, unspecified (principal); O23.42 Unspecified infection of urinary tract in pregnancy, second trimester; R10.2 Pelvic and perineal pain; Z3A.19 19 weeks gestation of pregnancy
CPT/HCPCS: 36415; 76805; 81001; 84702; 85025; 86900; 86901; Z7502; Z7610

== ENCOUNTER 2019-05-05 20:04 | Outpatient (CLI) | payer OTHER ==
[~2019-05-05] VITALS: Ht 162.6 cm; Wt 91.9 kg
[~2019-05-05 20:04] MED LIST changes: -ALPR0.5T6 PO; -BACTDS PO; +CALC600T24 PO; -CEPH-443 PO; -CIPR500T4 PO; +DOCU-144 PO; +FERR134T PO; -HYDR-3498 PO; -IBUP-1542 PO; -IBUP800T48 PO; +INSU100C SQ; -LORA-441 PO; -METF-849 PO; -NITR-58 PO; +NOVO7030 SC; +PENI500T PO; -PHEN-537 PO; -PHEN-538 PO; +PREN-19 PO; -TRAM50TA2 PO
[2019-05-05 21:23] VITALS: Ht 162.6 cm; Wt 91.9 kg
[2019-05-05 21:24] VITALS: BP 113/65; PULSE 74; RESP 18
[2019-05-05] MEDS ORDERED: ACETAMINOPHEN 325 MG TAB PO ONE (22:30)
--- NOTE | 2019-05-06 05:28 | TRIAGE ---
OB Triage Datetime Report Generated by CPN: 05/06/2019 05:28 Datetime: 05/06/2019 00:05 Stage of : OB Triage Labor Evaluation Frequency: 0 Monitor Mode: External Pattern: Normal: <= 5 Contractions in 10 Minutes Resting Tone [place]: Relaxed Datetime: 05/05/2019 23:50 Stage of : OB Triage Labor Evaluation Frequency: X1/30 MIN Monitor Mode: External Duration (sec)2399: 40 Quality: Mild Pattern: Normal: <= 5 Contractions in 10 Minutes Resting Tone [place]: Relaxed Datetime: 05/05/2019 23:00 Stage of : OB Triage Labor Evaluation Frequency: 0 Monitor Mode: External Resting Tone [place]: Relaxed Datetime: 05/05/2019 22:00 Stage of : OB Triage Labor Evaluation Frequency: 0 Monitor Mode: External Resting Tone [place]: Relaxed Datetime: 05/05/2019 21:42 Stage of : OB Triage Bedside Blood Glucose: 100 Datetime: 05/05/2019 21:00 Stage of : OB Triage Labor Evaluation Frequency: X1/30 MIN Monitor Mode: External Duration (sec)2399: 120 Quality: Mild Pattern: Normal: <= 5 Contractions in 10 Minutes Resting Tone [place]: Relaxed Heart Rate FHR Baseline Rate: 150 Monitor Mode: External US Variability: Moderate 6-25 bpm Accelerations: 10X10 Decelerations: None Category: Category I Datetime: 05/05/2019 20:38 Stage of : OB Triage Assessment Type: Triage Maternal Assessment Level of Consciousness: Keenly Alert, Responsive DTR's/Clonus: DTRs 2+; No Clonus Headache: Denies Blurred Vision: No Respiratory Effort: Unlabored; Regular Rhythm; Equal Expansion Breath Sounds, Left: Clear and Equal Breath Sounds, Right: Clear and Equal Nausea/Vomiting: Hx of Nausea/Vomiting RUQ Epigastric Pain: Denies Lower Extremities Edema: None Degree: None Upper Extremities Edema: None Degree: None Facial Edema: None Temperature Route: Oral Fall Risk Assessment History of Falling: (0) No Secondary Diagnosis: (0) No Ambulatory Aid: (0) Bedrest/Nurse Assist IV Therapy: (0) No Gait: (0) Normal/Bedrest/Immobile Mental Status: (0) Oriented to Own Ability Fall Score: 0 Fall Risk Score Definition: No Risk: No action required Monitor Mode: External US Variability: Moderate 6-25 bpm Accelerations: 15X15 Decelerations: None Comments: FHTs audible from 140-160. EFM removed. Pain Assessment Pain Scale: 2 Pain Presence: Constant Pain Type: Burning Pain Location: Back; Left Flank Pain Relief Measures: Comfort Measures Datetime: 05/05/2019 20:36 Monitor Mode: External US Comments: EFM applied Datetime: 05/05/2019 20:34 Time of Arrival: 05/05/2019 19:55 EGA: 24.3 Arrived By: Ambulatory Arrived From: Home Chief Complaint: Left middle back burning pain Left upper leg "numb _ burning" Rash under abdomen/above vagina Movement: Present Contractions: Denies/Absent Rupture of Membranes: Denies Vaginal Bleeding: None Vaginal Discharge: Denies Recent Sexual Intercouse: Denies Abdominal Trauma: Not Applicable Patient Complaints: Back Pain Time Provider Notified: 05/05/2019 22:20 Provider Notified: Initial Plan: CBC, UA, CMP, urine culture, abdominal U/S to R/O gallstones _ kidney stones Datetime: 04/24/2019 16:03 Stage of : Antepartum Datetime: 04/24/2019 15:39 Stage of : Antepartum Temperature Route: Oral Pain Assessment Pain Scale: 0 Datetime: 04/24/2019 12:29 Stage of : Antepartum Temperature Route: Oral Datetime: 04/24/2019 11:10 Stage of : Antepartum Bedside Blood Glucose: 87 (Annotations: 2 houir post prandial) Datetime: 04/24/2019 08:40 Stage of : Antepartum Bedside Blood Glucose: 82 (Annotations: fasting) Datetime: 04/24/2019 08:22 Stage of : Antepartum Temperature Route: Oral Datetime: 04/24/2019 08:14 Heart Rate FHR Baseline Rate: 135 Monitor Mode: External US Datetime: 04/24/2019 08:02 Assessment Type: Ongoing Assessment Maternal Assessment Level of Consciousness: Keenly Alert, Responsive DTR's/Clonus: DTRs 2+; No Clonus Headache: Denies Blurred Vision: No Respiratory Effort: Unlabored; Regular Rhythm; Equal Expansion Breath Sounds, Left: Clear and Equal Breath Sounds, Right: Clear and Equal Nausea/Vomiting: Denies RUQ Epigastric Pain: Denies Lower Extremities Edema: None Degree: None Upper Extremities Edema: None Degree: None Facial Edema: None Fall Risk Assessment History of Falling: (0) No Secondary Diagnosis: (0) No Ambulatory Aid: (0) Bedrest/Nurse Assist IV Therapy: (0) No Gait: (0) Normal/Bedrest/Immobile Mental Status: (0) Oriented to Own Ability Fall Score: 0 Fall Risk Score Definition: No Risk: No action required Datetime: 04/24/2019 05:03 Maternal Assessment Level of Consciousness: Keenly Alert, Responsive Headache: Denies Blurred Vision: No Pain Presence: None/Denies Datetime: 04/23/2019 22:38 Labor Evaluation Frequency: 0 Duration (sec)2399: DENIES Heart Rate FHR Baseline Rate: 145 Comments: FHT'S Q SHIFT,22 WEEKS. Pain Presence: None/Denies Datetime: 04/23/2019 20:28 Bedside Blood Glucose: 107 (Annotations: 14 UNITS OF NPH SQ INSULIN GIVEN PER ORDER.) Datetime: 04/23/2019 19:34 Stage of : Antepartum Assessment Type: Ongoing Assessment Maternal Assessment Level of Consciousness: Keenly Alert, Responsive DTR's/Clonus: DTRs 2+; No Clonus Headache: Denies Blurred Vision: No Respiratory Effort: Unlabored; Regular Rhythm; Equal Expansion Breath Sounds, Left: Clear and Equal Breath Sounds, Right: Clear and Equal Nausea/Vomiting: Denies RUQ Epigastric Pain: Denies Lower Extremities Edema: None Degree: None Upper Extremities Edema: None Degree: None Facial Edema: None Temperature Route: Oral Fall Risk Assessment History of Falling: (0) No Secondary Diagnosis: (0) No Ambulatory Aid: (0) Bedrest/Nurse Assist IV Therapy: (0) No Gait: (0) Normal/Bedrest/Immobile Mental Status: (0) Oriented to Own Ability Fall Score: 0 Fall Risk Score Definition: No Risk: No action required Pain Presence: None/Denies Vaginal Exam Membrane Status: Intact Datetime: 04/23/2019 11:30 Heart Rate FHR Baseline Rate: 140 Monitor Mode: External US FHR Baseline Changes: No Baseline Change Variability: Moderate 6-25 bpm Accelerations: 15X15 Decelerations: None Category: Category I Comments: ATIVE NST AND PT REPORT ACTIVE MOVEMENT Datetime: 04/23/2019 10:35 Stage of : Antepartum Datetime: 04/23/2019 09:19 Maternal Assessment Level of Consciousness: Keenly Alert, Responsive DTR's/Clonus: DTRs 2+ Headache: Denies Blurred Vision: No Respiratory Effort: Unlabored Nausea/Vomiting: Denies RUQ Epigastric Pain: Denies Facial Edema: None Bedside Blood Glucose: 84 Pain Assessment Pain Scale: 1 Pain Presence: Intermittent Pain Type: Pressure Pain Location: Abdomen Pain Goal: 3 Pain Relief Measures: Comfort Measures Pain Assessment Comments: c/o round ligament pain on left lower abdomen occasional Datetime: 04/23/2019 08:30 Maternal Assessment Level of Consciousness: Keenly Alert, Responsive DTR's/Clonus: DTRs 2+ Headache: Denies Blurred Vision: No Respiratory Effort: Unlabored Nausea/Vomiting: Denies RUQ Epigastric Pain: Denies Facial Edema: None Contraction Comments: n/a Comments: n/a Pain Assessment Pain Scale: 0 Pain Presence: None/Denies Pain Type: N/A Pain Goal: 3 Pain Relief Measures: Comfort Measures Datetime: 04/23/2019 07:47 Maternal Assessment Level of Consciousness: Keenly Alert, Responsive DTR's/Clonus: DTRs 2+ Headache: Denies Blurred Vision: No Respiratory Effort: Unlabored Nausea/Vomiting: Denies RUQ Epigastric Pain: Denies Facial Edema: None Contraction Comments: denies, off per orders Comments: off per order Pain Assessment Pain Scale: 0 Pain Presence: None/Denies Pain Type: N/A Pain Goal: 3 Pain Relief Measures: Comfort Measures Datetime: 04/23/2019 07:30 Assessment Type: Ongoing Assessment Maternal Assessment Level of Consciousness: Keenly Alert, Responsive DTR's/Clonus: DTRs 2+; No Clonus Headache: Denies Blurred Vision: No Respiratory Effort: Unlabored; Regular Rhythm; Equal Expansion Breath Sounds, Left: Clear and Equal Breath Sounds, Right: Clear and Equal Nausea/Vomiting: Denies RUQ Epigastric Pain: Denies Lower Extremities Edema: None Upper Extremities Edema: None Facial Edema: None Fall Risk Assessment History of Falling: (0) No Secondary Diagnosis: (0) No Ambulatory Aid: (0) Bedrest/Nurse Assist IV Therapy: (20) Yes Gait: (0) Normal/Bedrest/Immobile Mental Status: (0) Oriented to Own Ability Fall Score: 20 Fall Risk Score Definition: No Risk: No action required Datetime: 04/23/2019 06:41 Pain Presence: None/Denies Datetime: 04/23/2019 00:30 Vaginal Exam Membrane Status: Intact Datetime: 04/22/2019 23:35 Category: Category II Datetime: 04/22/2019 23:05 Assessment Type: Admission Assessment Maternal Assessment Level of Consciousness: Keenly Alert, Responsive DTR's/Clonus: DTRs 2+; No Clonus Headache: Denies Blurred Vision: No Respiratory Effort: Unlabored; Regular Rhythm; Equal Expansion Nausea/Vomiting: Denies RUQ Epigastric Pain: Denies Lower Extremities Edema: None Degree: None Upper Extremities Edema: None Degree: None Facial Edema: None Fall Risk Assessment History of Falling: (0) No Secondary Diagnosis: (0) No Ambulatory Aid: (0) Bedrest/Nurse Assist IV Therapy: (0) No Gait: (0) Normal/Bedrest/Immobile Mental Status: (0) Oriented to Own Ability Fall Score: 0 Fall Risk Score Definition: No Risk: No action required Datetime: 04/22/2019 23:04 Fall Risk Assessment History of Falling: (0) No Secondary Diagnosis: (0) No Ambulatory Aid: (0) Bedrest/Nurse Assist IV Therapy: (0) No Gait: (0) Normal/Bedrest/Immobile Mental Status: (0) Oriented to Own Ability Fall Score: 0 Fall Risk Score Definition: No Risk: No action required Datetime: 04/22/2019 22:55 Arrived By: Wheelchair Arrived From: Home Datetime: 04/22/2019 21:35 Stage of : OB Triage Datetime: 04/22/2019 20:56 EGA: 22.4 Additional Patient Complaints: Type 1 DM Datetime: 04/22/2019 20:35 Stage of : OB Triage
--- NOTE | 2019-05-13 16:11 | PREOPHP ---
DATE OF ADMISSION: 05/05/2019 HISTORY OF PRESENT ILLNESS: This is a 34-year-old lady, 7, para 4, with 2 spontaneous aborti ons, EDC of 08/22/2019, admitted to labor and delivery area for observation. She had lower abdominal pain, low back pain and dysuria with slight vaginal spotting. She did not have any sexual intercour se. She had care in [facility] office and the care was uneventful. PAST PERSONAL HISTORY: No history of TB, asthma. ALLERGIES: NONE. SOCIAL HISTORY: The patient does not smoke. She does not drink. MEDICATIONS: She does not take any drugs except her: 1. Iron. 2. Vitamins. 3. Insulin for her diabetes. PAST MEDICAL HISTORY: She has a history of diabetes for the last 8 years and this was in 2011 on her last delivery. GYNECOLOGICAL HISTORY: She had menarche at the age of 9, every 28 days interval, 3 to 4 days duratio n and moderate in amount. FAMILY HISTORY: Son and mother have diabetes. OBSTETRICAL HISTORY: She is 7, para 4. Her first delivery was in 1998, second in 2000, thir d in 2008 and fourth in 2011. She had diabetes then and in 2011. All were normal deliveri es. The largest baby weighed 9 pounds. REVIEW OF SYSTEMS: CARDIOVASCULAR: No chest pains. RESPIRATORY: No cough. GASTROINTESTINAL: No diarrhea. No vomiting. GENITOURINARY: No dysuria. PHYSICAL EXAMINATION: GENERAL: Reveals a conscious, coherent lady and in no acute distress. VITAL SIGNS: Her blood pressure 120/80, pulse rate 80 per minute, respirations 16 per minute. BREASTS, HEART AND LUNGS: Within normal limits. ABDOMEN: Soft. No organomegaly. Fundic height is 24 cm. heart tones are 140 per minute. PELVIC: Revealed the cervix to be closed. No vaginal bleeding noted. EXTREMITIES: No pedal edema. ADMITTING DIAGNOSES: 1. A 24 and 3/7 weeks' intrauterine . 2. Insulin-dependent diabetes. 3. Urinary tract infection. The patient was given IV hydration. Urine showed urinary tract infection. She was given Ancef 1 gra m q.8 hours and that she was continued with her insulin. She was observed after the 3 doses of Ancef to be given. The plans were explained to the patient and she understood everything totally. The ri sks, benefits and alternatives were discussed with her as well. Dictated By: AIDA HATFIELD/SHYLA Conf#: [id number] DID#: [id number]
--- NOTE | 2019-05-13 17:23 | DS ---
DATE OF ADMISSION: 05/05/2019 DATE OF DISCHARGE: 05/06/2019 HISTORY OF PRESENT ILLNESS: See dictated history and physical. PHYSICAL EXAMINATION: See dictated history and physical. ADMITTING DIAGNOSES: 1. A 24 and 3/7 weeks' intrauterine . 2. Lower abdominal pain. 3. Insulin-dependent diabetes. HOSPITAL COURSE: The patient had ultrasound and lab tests were done, so she was given IV antibiotics for 3 doses. She was discharged home in good and stable condition on 1800-diabetic diet. Continue with the insulin. FINAL DIAGNOSES: 1. A 24 and 4/7 weeks' intrauterine . 2. History of insulin-dependent diabetes. 3. Urinary tract infection. Dictated By: AIDA HATFIELD/SHYLA Conf#: [id number] DID#: [id number]
== END 2019-05-06 00:15 | disposition home or self-care (01) ==
LOC: OBT 20:04 → L-D 20:05 → OBT 05-06 00:15
PROVIDERS: ATTEND Obstetrics & Gynecology
DX: O24.414 Gestational diabetes mellitus in pregnancy, insulin controlled (principal); O23.41 Unspecified infection of urinary tract in pregnancy, first trimester; Z3A.01 Less than 8 weeks gestation of pregnancy
CPT/HCPCS: 76700; 80053; 81001; 82962; 85025; 87086; Z7500; Z7610; G0463

== ENCOUNTER 2019-05-21 20:54 | Outpatient (CLI) | payer OTHER ==
[~2019-05-21] VITALS: Ht 162.6 cm; Wt 91.6 kg
[2019-05-21 21:06] VITALS: BP 119/74; PULSE 110; RESP 18; Ht 162.6 cm; Wt 91.6 kg
[2019-05-21] MEDS ORDERED: ONDANSETRON 4 MG INJ IV PRN (21:30)
[2019-05-21] MEDS ORDERED: LACTATED RINGER'S 1,000 ML IV ONE (21:30)
[2019-05-21] MEDS ORDERED: LACTATED RINGER'S 1,000 ML IV SCH (21:30)
[2019-05-21] MEDS ORDERED: ACETAMINOPHEN 1000MG/100ML IV 100 ML IVPB ONE (23:30)
== END 2019-05-22 01:58 | disposition home or self-care (01) ==
LOC: OBT 20:54 → L-D 20:56 → OBT 05-22 01:15
PROVIDERS: ATTEND Obstetrics & Gynecology
DX: O24.414 Gestational diabetes mellitus in pregnancy, insulin controlled (principal); O26.892 Other specified pregnancy related conditions, second trimester; R10.2 Pelvic and perineal pain; Z3A.26 26 weeks gestation of pregnancy
CPT/HCPCS: 36415; 76815; 76818; 80053; 81001; 85025; 87086; 96360; 96361; J0131; J2405; J7120; Z7500; G0463